=== PATIENT | female | born 2000 | race Caucasian/White ===

== ENCOUNTER 2022-06-04 01:12 | Emergency (ER) | payer OTHER ==
[~2022-06-04] VITALS: Ht 170.2 cm; Wt 108.9 kg
[2022-06-04 01:15] VITALS: BP 128/76
--- NOTE | 2022-06-04 01:17 | NUR ---
BIBA TO BED #7
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
--- NOTE | 2022-06-04 01:24 | NUR ---
01:24 INES POE; S/W BASIL REGARDING 5150 HOLD.
[2022-06-04] MEDS ORDERED: NACL 0.9% 1,000 ML IV ONE ×2 (01:25→19:55)
--- NOTE | 2022-06-04 01:34 | NUR ---
CALLED [facility]ISON CONTROL TO REPORT CASE, PLACED ON HOLD FOR 10 MINS WILL REATTEMPT.
--- NOTE | 2022-06-04 01:36 | NUR ---
PT HAS HISTORY OF BIPOLAR
[2022-06-04 01:38] LABS: BASOPHILS % (AUTO) 0.4 % (0.0-2.0); EOSINOPHILS # (AUTO) 0.1 K/uL (0-0.4); EOSINOPHILS % (AUTO) 1.2 % (0.0-4.0); HEMOGLOBIN 11.4 g/dL (12.0-16.0); LYMPHOCYTES # (AUTO) 0.8 K/uL (2.5-16.5); LYMPHOCYTES % (AUTO) 13.2 % (20.5-51.1); MEAN CORPUSCULAR HEMOGLOBIN 26 pg (27-31); MEAN CORPUSCULAR HGB CONC 33 g/dL (33-37); MEAN CORPUSCULAR VOLUME 79.9 fL (80-94); MONOCYTES # (AUTO) 0.5 K/uL (0.8-1.0); MONOCYTES % (AUTO) 7.4 % (1.7-9.3); NEUTROPHILS % (AUTO) 77.8 % (42.2-75.2); PLATELET COUNT (AUTO) 288 K/uL (140-450); RED BLOOD CELL COUNT(AUTO) 4.38 MIL/uL (4.20-5.40); RED CELL DISTRIBUTION WIDTH 15.2 % (11.6-13.7); WHITE BLOOD COUNT (AUTO) 6.4 K/uL (4.8-10.8)
--- NOTE | 2022-06-04 01:48 | NUR ---
PT MEDS INCLUDES TRAZODONE, SEROQUEL, GABAPENTIN, WELLBUTRIN, AND LITHIUM
--- NOTE | 2022-06-04 01:49 | NUR ---
ALL ITEMS FROM ROOM REMOVED FOR PT SAFETY. PT IN GOWN ALL BELONGINGS BAGGED AND TAGGED GIVEN TO SECURITY. PT IN VIEW OF NURSES STATION
[2022-06-04 01:58] LABS: ALBUMIN 4.1 g/dL (3.4-5.0); ANION GAP 13.6 (8-16); ASPARTATE AMINOTRANSFERASE 13 U/L (15-37); CARBON DIOXIDE 24.8 mmol/L (21-32); CHLORIDE 106 mmol/L (98-107); CREATININE 0.8 mg/dL (0.6-1.3); GFR ARICAN-AMERICAN 113 mL/min (>90); GLUCOSE 100 mg/dL (74-106); POTASSIUM 4.4 mmol/L (3.5-5.1); SODIUM SERUM 140 mmol/L (136-145); TOTAL BILIRUBIN 0.4 mg/dL (0.0-1.0); UREA NITROGEN, BLOOD 8 mg/dL (7-18)
--- NOTE | 2022-06-04 01:59 | NUR ---
CALLED POISON CONTROL S/W SERAFIN NUNEZ WHO PROVIDED FOLLOWING RECOMMENDATIONS: 6 HOUR OBSERVATIONS, BASELINE LABS, CARDIAC MONITORING, BENZOS IF SEIZURES OCCUR, QTC >500 REPLACE ELECTROLYTES MAGNESIUM,POTASSIUM, CALCIUM IF LOW, REPEAT LIVER FUNCTION TEST IN 4-6 HOURS. WATCH FOR HYPOTENSION, BRADYCARDIA, SEIZURES. ALL RECOMMENDATIONS RELAYED TO VERNON SOLIS
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
[2022-06-04 02:04] LABS: ACETAMINOPHEN < 0.5 ug/ml (10-30); SALICYLATE < 2.8 mg/dL (2.8-20.0)
--- NOTE | 2022-06-04 04:32 | NUR ---
PT WALKED TO BATHROOM WITH ASSIST. GAIT UNSTEADY. PT STATES FEELING "OFF" AND DIZZY. URINE OBTAINED AND SENT TO LAB. PT PLACED BACK ON BEDSIDE SHRIMPING BOAT CAPTAIN.
[2022-06-04 05:04] LABS: BARBITURATE, URINE NEGATIVE ng/ml (NEG <=200); BENZODIAZEPINE, URINE NEGATIVE ng/mL (NEG <=200); CANNABINOID, URINE NEGATIVE ng/mL (NEG <=50); COCAINE, URINE NEGATIVE ng/mL (NEG <=300); OPIATE, URINE NEGATIVE ng/mL (NEG <=2000); PHENCYCLIDINE SCREEN,URINE NEGATIVE ng/mL (NEG <=25)
[2022-06-04] MEDS ORDERED: TRAZ-343 PO (05:42)
[2022-06-04] MEDS ORDERED: GABA300C PO (06:08)
[2022-06-04] MEDS ORDERED: DULO20EC PO (06:08)
[2022-06-04] MEDS ORDERED: RISP1TAB PO (06:08)
[2022-06-04] MEDS ORDERED: FLUO40CA6 PO (06:08)
[2022-06-04] MEDS ORDERED: ESK300 PO (06:08)
[2022-06-04] MEDS ORDERED: GABA600T11 PO (06:08)
[2022-06-04] MEDS ORDERED: BUPR300T70 PO (06:08)
[2022-06-04] MEDS ORDERED: GABA400C PO (06:08)
[2022-06-04 06:55] LABS: ALBUMIN 3.9 g/dL (3.4-5.0); ANION GAP 13.5 (8-16); CARBON DIOXIDE 22.5 mmol/L (21-32); CREATININE 0.8 mg/dL (0.6-1.3); MAGNESIUM 1.8 mg/dL (1.8-2.4); TOTAL BILIRUBIN 0.4 mg/dL (0.0-1.0)
--- NOTE | 2022-06-04 07:28 | NUR ---
Received report from KOLTON Lima for transfer of care.
--- NOTE | 2022-06-04 09:43 | NUR ---
Spoke to Emma @ [facility], to update of her patients clinical information. Requesting to fax face sheet, clinicals and hold to [phone].
--- NOTE | 2022-06-04 10:00 | NUR ---
Patient is laying in bed, drowsy but arousable. All needs met by staff.
--- NOTE | 2022-06-04 10:29 | NUR ---
Spoke to Teressa @ [facility], recommending repeat EKG, if QTC is greater than 500, treat with magnesium, calcium and potassium. If she gets seizures give benzodiazepins if needed. Will call back if there are any changes to recommendation. Dr. Chery made aware.
--- NOTE | 2022-06-04 10:38 | NUR ---
Spoke to Teressa @ [facility] to reiterate repeat EKG and if patient becomes hypotensive to give IV fluids and Vasopressors. Per Teressa, she will call back tomorrow. Informed her that patient may be transfered to different facility due to insurance.
--- NOTE | 2022-06-04 11:46 | NUR ---
WC ASSISTED TO BATHROOM
--- NOTE | 2022-06-04 13:25 | NUR ---
Patient is laying in bed, respirations even and unlabored. All needs met by staff.
--- NOTE | 2022-06-04 15:48 | NUR ---
Patient is drowzy but easily arousable. Patient is alert and verbally responsible. All needs met by staff.
--- NOTE | 2022-06-04 18:22 | NUR ---
Spoke to [facility] @ [facility], patient will most likely be admitted tomorrow. Patient has not ambulated this shift. If patient ambulates, we can call [facility] @ [phone] to update her and see if she has a sonner last picker time.
--- NOTE | 2022-06-04 19:22 | NUR ---
Report given to KOLTON Roper for transfer of care.
[2022-06-04] MEDS ORDERED: MECLIZINE 25 MG TAB PO ONE (19:55)
[2022-06-04] MEDS ORDERED: KETOROLAC 30 MG/ML VIAL IVP ONE (19:55)
[2022-06-04] MEDS ORDERED: MECLIZINE 25 MG TAB ONE (21:28)
[2022-06-04] MEDS ORDERED: LORazepam 2 MG/ML VIAL ONE (21:28)
[2022-06-04] MEDS ORDERED: KETOROLAC 30 MG/ML VIAL ONE (21:28)
[2022-06-04] MEDS: LORazepam 2 MG/ML VIAL IVP ONE (22:00)
--- NOTE | 2022-06-04 22:14 | NUR ---
Poison control called, update given to Quentin.
--- NOTE | 2022-06-05 00:40 | NUR ---
Pt noted able to ambulate with gait steady. Contact [facility] regarding available bed and spoke with RN who stated that they would be unable to admit patient until the morning. Addendum: 06/05/22 at 0550 by [email or web address] Spoke with Ross from [facility] regarding patient transfer.
--- NOTE | 2022-06-05 02:41 | NUR ---
Alert and responsive. Denies any pain or discomfort.
--- NOTE | 2022-06-05 04:41 | NUR ---
Note winston in ED - 06/05/22 at 0442 by [email or web address] Alert and responsive. Denies any pain or discomfort.
--- NOTE | 2022-06-05 04:41 | NUR ---
Pt noted resting comfortably at this time. No c/o discomfort.
--- NOTE | 2022-06-05 05:39 | NUR ---
Spoke with Ross from [facility], no beds available in facility at this time. Per Ross, bed should be available later in the morning as they would be doing discharges and to resubmit request, and make sure patient able to ambulate and independent with ADLs.
--- NOTE | 2022-06-05 07:26 | NUR ---
Report recieved from KOLTON Roper for transfer of care.
--- NOTE | 2022-06-05 08:00 | NUR ---
Patient was offered breakfast tray, patient refused.
--- NOTE | 2022-06-05 09:39 | NUR ---
Patient ambulated to restroom.
--- NOTE | 2022-06-05 10:10 | NUR ---
Spoke to Michael @ [facility] to update him on patients condition.
--- NOTE | 2022-06-05 11:18 | NUR ---
Spoke to Sybil @ [facility], patient is admitted to [facility] under the care of Dr. Lemon, Room 708 Bed 1. Give report in about 30 mins to [phone]. Transportation should be arriving in 60-90 mins.
--- NOTE | 2022-06-05 12:01 | NUR ---
Called and gave report to Laura @ [facility].
--- NOTE | 2022-06-05 14:25 | NUR ---
1423 [facility] @ BEDSIDE FOR TRANSPORT
[2022-06-05 14:39] VITALS: BP 113/73
--- NOTE | 2022-06-05 14:39 | NUR ---
Patient to be transferred to [facility] ROOM 708 BED 1. Is being transferred due to INSURANCE PURPOSES. Receiving facility has accepting physician and available space. ER physician has signed transfer form. Patient or responsible democrat has agreed to transfer and signed form. Patient belongings inventoried and will be sent with patient. Copy of nursing notes, lab reports, EKG, Physicians Orders and X-rays to be sent with patient. Report called to YVON HI at receiving facility. [facility] ambulance service has been called for transfer. ETA is 30MIN.
== END 2022-06-05 14:39 | disposition short-term general hospital (02) ==
LOC: MED 01:12
DX: R45.851 Suicidal ideations (principal); Z20.822 Contact with and (suspected) exposure to COVID-19; T43.212A Poisoning by selective serotonin and norepinephrine reuptake inhibitors, intentional self-harm, initial encounter; F32.A Depression, unspecified; Z88.0 Allergy status to penicillin; Z79.899 Other long term (current) drug therapy; Y92.89 Other specified places as the place of occurrence of the external cause
CPT/HCPCS: 36415; 80053; 80178; 80305; 83735; 85025; 87426; 87635; 93005; 96361; 96374; 99285; C9803; G0480; G0482; J1885; J2060; J7030; J8597